=== PATIENT | female | born 2000 | race African-American/Black ===

== ENCOUNTER 2025-02-21 05:07 | Inpatient (IN) | payer MEDICAID ==
[~2025-02-21] VITALS: Ht 157.5 cm; Wt 56.7 kg
[2025-02-21 05:10] VITALS: O2SAT 98
[2025-02-21 06:01] LABS: BASOPHILS % 0.2 % (0.0-2.0); EOSINOPHILS % 0.1 % (0.0-5.0); HEMATOCRIT. 41.7 % (36.0-48.0); HEMOGLOBIN. 14.2 g/dL (12.0-16.0); LYMPHOCYTES % 26.6 % (20.0-50.0); MEAN PLATELET VOLUME 8.3 fl (7.4-10.4); MONOCYTES % 5.4 % (2.0-8.0); NEUTROPHILS % 67.7 % (40.0-76.0); PLATELET 323 x1000/uL (130-400); RED BLOOD CELL COUNT 4.40 mill/uL (4.2-5.4); RED CELL DISTRIBUTION WIDTH 14.9 % (11.6-14.6)
[2025-02-21 06:04] LABS: CREATININE 0.8 mg/dL (0.6-1.0); UREA NITROGEN BLOOD 6 mg/dL (9-23)
[2025-02-21 06:06] LABS: ASPARTATE AMINOTRANSFERASE 17 IU/L (<34); BILIRUBIN DIRECT 0.3 mg/dL (<=3.0); BILIRUBIN TOTAL 0.8 mg/dL (0.1-1.0); PROTEIN TOTAL 7.6 g/dL (6.0-8.3)
[2025-02-21] MEDS: METOCLOPRAMIDE HCL 10MG/2ML VIAL IV ONE (06:10)
[2025-02-21] MEDS: PANTOPRAZOLE SODIUM 40 MG/VIAL IV ONE (06:10)
[2025-02-21] MEDS: LACTATED RINGERS 1,000 ML IV SCH (06:10)
[2025-02-21] MEDS: ACETAMINOPHEN 325MG TABLET PO ONE (06:11)
[2025-02-21 06:23] LABS: HCG SCREEN NEGATIVE
[2025-02-21] MEDS: POTASSIUM CHLORIDE 20MEQ/PACKET PO ONE (06:25)
[2025-02-21] MEDS ORDERED: POTASSIUM CHLORIDE 40 MEQ in DEXT 5% WATER 230 ML IV ONE (08:00)
[2025-02-21] MEDS ORDERED: ACETAMINOPHEN 650MG SUPP PR PRN (08:00)
[2025-02-21] MEDS ORDERED: IPRATROPIUM/ALBUTEROL 0.5-3(2.5)MG/3ML NEB HHN PRN (08:00)
[2025-02-21 08:52] VITALS: O2SAT 99
[2025-02-21] MEDS: POTASSIUM CHLORIDE 20MEQ/PACKET PO NR (09:06)
[2025-02-21] MEDS: KCL 20MEQ/100ML X 2 FOR TOTAL KCL 40MEQ/200ML IV SCH (09:06)
[2025-02-21] MEDS: ONDANSETRON 4MG ODT PO SCH (09:06)
[2025-02-21] MEDS: PANTOPRAZOLE SODIUM 40 MG/VIAL IV SCH (09:06)
[2025-02-21 09:30] VITALS: BP 104/81; PULSE 94; RESP 16; TEMP 36.8072
[2025-02-21] MEDS: SODIUM CHLORIDE 0.9% 1,000 ML IV SCH (10:31)
[2025-02-21 11:28] LABS: CLARITY URINE CLEAR (CLEAR); COLOR URINE YELLOW (YELLOW); GLUCOSE URINE NEGATIVE (NEGATIVE); KETONES URINE TRACE (NEGATIVE); LEUKOCYTE ESTERASE URINE NEGATIVE (NEGATIVE); NITRITE URINE NEGATIVE (NEGATIVE); OCCULT BLOOD URINE NEGATIVE (NEGATIVE); PH URINE 8.0 (4.5-8.0); PROTEIN URINE NEGATIVE (NEGATIVE); SPECIFIC GRAVITY URINE 1.009 (1.005-1.030); UROBILINOGEN URINE 0.2 E.U./dL (0.2-1.0)
[2025-02-21 12:12] LABS: *AMPHETAMINES SCREEN URINE NEGATIVE (NEGATIVE)
[2025-02-21 12:13] LABS: *BARBITURATES SCREEN URINE NEGATIVE (NEGATIVE); *BENZODIAZEPINES SCREEN URINE NEGATIVE (NEGATIVE); *COCAINE SCREEN URINE NEGATIVE (NEGATIVE); CANNABINOID URINE SCREEN PRESUMPTIVE POSITIVE (NEGATIVE); ECSTASY MDMA SCREEN URINE NEGATIVE (NEGATIVE); METHADONE URINE SCREEN NEGATIVE (NEGATIVE); OPIATES URINE SCREEN NEGATIVE (NEGATIVE); PHENCYCLIDINE URINE SCREEN NEGATIVE (NEGATIVE)
[2025-02-21] MEDS: ENOXAPARIN 40MG/0.4ML SYR SUBCUT SCH (15:08)
== END 2025-02-21 17:10 | disposition left against medical advice (07) | DRG 242 ==
LOC: ER 05:18 → 6WST 06:09 → EDBEDREQ 06:50 → EDBEDREQTM 06:50 → ENRESERV 08:51
PROVIDERS: ADMIT Internal Medicine; ATTEND Internal Medicine
DX: K22.6 Gastro-esophageal laceration-hemorrhage syndrome (principal); E87.6 Hypokalemia; J45.909 Unspecified asthma, uncomplicated; R10.30 Lower abdominal pain, unspecified; R39.15 Urgency of urination; G43.909 Migraine, unspecified, not intractable, without status migrainosus; Z53.29 Procedure and treatment not carried out because of patient's decision for other reasons; Z82.49 Family history of ischemic heart disease and other diseases of the circulatory system
CPT/HCPCS: 36415; 74176; 80048; 80076; 80305; 81003; 84703; 85025; 99291; J1650; J2470; J2765; J3480; Q0162